=== PATIENT | female | born 1960 | race Hispanic/Latino ===

== ENCOUNTER → 2022-06-08 | Outpatient (CLI) | payer BC ==
[~2022-06-08] MED LIST: IOHEXOL 350 MG/ML 100ML INFUS..BTL IV ONE; METOPROLOL TARTRATE 1 MG/ML 5ML VIAL IV ONE
== END | disposition home or self-care (01) ==
LOC: RAH 09:08
PROVIDERS: ATTEND Student in an Organized Health Care Education/Training Program
DX: R07.9 Chest pain, unspecified (principal)
CPT/HCPCS: 75574; J3490 ×3; Q9967

== ENCOUNTER → 2022-08-08 | Outpatient (CLI) | payer BC ==
[2022-08-08 13:05] LABS: CHOLESTEROL 155 mg/dL (<200); HDL CHOLESTEROL 56 mg/dL (35-85); LDL DIRECT 84 mg/dL (0-99); TRIGLYCERIDES 107 mg/dL (30-200)
== END | disposition home or self-care (01) ==
LOC: LAB 07-10 11:05
PROVIDERS: ATTEND Student in an Organized Health Care Education/Training Program
DX: E78.2 Mixed hyperlipidemia (principal); E03.9 Hypothyroidism, unspecified
CPT/HCPCS: 36415; 80061; 84403

== ENCOUNTER → 2022-12-18 | Outpatient (CLI) | payer BC ==
[2022-12-18 16:56] LABS: CHOLESTEROL 144 mg/dL (<200); HDL CHOLESTEROL 40 mg/dL (35-85); LDL DIRECT 64 mg/dL (0-99); TRIGLYCERIDES 297 mg/dL (30-200)
== END | disposition home or self-care (01) ==
LOC: LAB 08-31 10:53
PROVIDERS: ATTEND Student in an Organized Health Care Education/Training Program
DX: E78.2 Mixed hyperlipidemia (principal)
CPT/HCPCS: 36415; 80061

== ENCOUNTER → 2023-11-27 | Outpatient (CLI) | payer BC ==
[2023-11-27 12:28] LABS: CHOLESTEROL 147 mg/dL (<200); HDL CHOLESTEROL 58 mg/dL (35-85); LDL DIRECT 75 mg/dL (0-99); TRIGLYCERIDES 86 mg/dL (30-200)
== END | disposition home or self-care (01) ==
LOC: LAB 08:05
PROVIDERS: ATTEND Student in an Organized Health Care Education/Training Program
DX: Z01.812 Encounter for preprocedural laboratory examination (principal); E03.9 Hypothyroidism, unspecified; R94.31 Abnormal electrocardiogram [ECG] [EKG]; E78.2 Mixed hyperlipidemia; R07.9 Chest pain, unspecified
CPT/HCPCS: 36415; 80061

== ENCOUNTER → 2024-05-14 | Outpatient (CLI) | payer BC ==
[2024-05-14 12:58] LABS: CHOLESTEROL 215 mg/dL (<200); HDL CHOLESTEROL 57 mg/dL (35-85); LDL DIRECT 140 mg/dL (0-99); TRIGLYCERIDES 95 mg/dL (30-200)
== END | disposition home or self-care (01) ==
LOC: LAB 10:19
PROVIDERS: ATTEND Student in an Organized Health Care Education/Training Program
DX: E78.2 Mixed hyperlipidemia (principal)
CPT/HCPCS: 36415; 80061